=== PATIENT | female | born 1990 ===

== ENCOUNTER 2021-08-10 20:50 | Emergency (ER) | payer MEDICAID ==
[2021-08-11 01:14] LABS: CORONAVIRUS COVID-19 NAA NEGATIVE (NEGATIVE); INFLUENZA A NAA NEGATIVE (NEGATIVE); INFLUENZA B NAA NEGATIVE (NEGATIVE)
== END 2021-08-11 01:33 | disposition home or self-care (01) ==
LOC: MW.ED 20:50
DX: R06.02 Shortness of breath (principal); Z20.822 Contact with and (suspected) exposure to COVID-19
CPT/HCPCS: 0240U; 71045; 99283